=== PATIENT | male | born 1965 | race Caucasian/White ===

== ENCOUNTER 2023-08-02 08:25 | Day surgery (SDC) | payer OTHER, SELFPAY ==
[2023-08-02] MEDS: LACTATED RINGERS 1,000 ML 42 ML IV (08:44)
[2023-08-02 09:07] VITALS: BP 150/92; PULSE 80; RESP 20; TEMP 36.5; O2SAT 97
--- NOTE | 2023-08-02 09:23 | PM.HP.1 ---
History of Present Illness History of Present Illness Date Patient Seen: 08/02/23 Chief complaint: Screening Colonoscopy Narrative: First screening colonoscopy [facility] Social History Smoking Status: Unknown if ever smoked alcohol intake: current Meds Home Medications and Allergies Home Medications Medication Instructions Recorded Confirmed Type atorvastatin 40 mg tablet 40 mg PO DAILY 07/30/23 08/02/23 History empagliflozin 10 mg tablet 10 mg PO DAILY 07/30/23 08/02/23 History (Jardiance) lisinopril 10 mg tablet 10 mg PO DAILY 07/30/23 08/02/23 History metformin 500 mg tablet,extended 1,000 mg PO BID 07/30/23 08/02/23 History release 24 hr pantoprazole 20 mg tablet,delayed 20 mg PO DAILY 07/30/23 08/02/23 History release Allergies Allergy/AdvReac Type Severity Reaction Status Date / Time Penicillins Allergy Unknown Verified 08/02/23 06:42 Exam Vital Signs (past 8 hours): - 08/02/23 09:07 Temperature 97.7 F Pulse Rate 80 Respiratory Rate 20 Blood Pressure 150/92 H Pulse Oximetry 97 Oxygen Delivery Method Room Air Oxygen Delivery Method Room Air Narrative Exam Narrative: Oropharynx free of lesions Chest clear to auscultation percussion Cardiac exam reveals no S3 or murmur Assessment & Plan Assessment & Plan narrative: First screening colonoscopy. Risks, benefits, alternatives have been explained.
--- NOTE | 2023-08-02 09:25 | P.OP.COLON_ITS ---
Operative Date/Time/Diagnoses Date of procedure: 08/02/23 Pre-op diagnosis: See indication and findings Procedure & Clinicians Study performed: Colonoscopy Indications: Screening Surgeon: Devin Retana Procedure Notes Procedure in detail: After informed consent was obtained the patient was placed in left lateral d ecubitus position. The video colonoscope was introduced the rectum slowly advanced cecum. Preparation was good. On slow withdrawal mucosa was carefully examined. The scope was removed. The patient tolerated procedure well. Blood loss none Complications none For sedation mac Findings 1. Normal colonoscopy to cecum other than rare scattered left-sided diverticula. Patient should have follow-up colonoscopy in 10 years
[2023-08-02 10:19] VITALS: BP 134/82; PULSE 76; RESP 14; TEMP 36.8; O2SAT 99
[2023-08-02 10:24] VITALS: BP 144/88; PULSE 78; RESP 13; O2SAT 98
[2023-08-02 10:29] VITALS: BP 145/87; PULSE 74; RESP 16; TEMP 37; O2SAT 98
[2023-08-02 10:32] VITALS: BP 147/91; PULSE 66; RESP 16; TEMP 36.8; O2SAT 98
== END 2023-08-02 10:39 | disposition home or self-care (01) ==
PROVIDERS: PCP Nurse Practitioner Family; Referring Provider Internal Medicine Gastroenterology; Visit Provider Internal Medicine Gastroenterology
PROC: 0DJD8ZZ Inspection of Lower Intestinal Tract, Via Natural or Artificial Opening Endoscopic (ICD-10-PCS; CPT 45378; principal; 2023-08-02 09:30)
DX: Z12.11 Encounter for screening for malignant neoplasm of colon (principal); K57.30 Diverticulosis of large intestine without perforation or abscess without bleeding
CPT/HCPCS: 45378; J2704